=== PATIENT | female | born 1960 | race Caucasian/White ===

== ENCOUNTER 2016-08-15 15:32 | Emergency (ER) | payer MEDICARE, OTHER ==
[~2016-08-15 15:32] MED LIST: ADVAIR115P INH; APRES50 PO; ASAB PO; C25 PO; C5 PO; FLEX PO; FOLIC PO; IMDUR120 PO; KLOR-CON 1010 MEQ PO; L20 PO; LEVEMIR SC; LEVOTHYROXIN175 MCG PO; LIPITOR40 PO; LOFIB160 PO; NEUR600 PO; NORCO1 TA1 PO; NOVOPEN SC; PLAVIX PO; PRILO PO; PROAIR HFA INH; PROTONIX PO; RAN500 PO; REG5 PO; V5 PO; WELL75 PO
== END 2016-08-15 15:40 | disposition home or self-care (01) ==
LOC: ER 15:32
DX: E11.65 Type 2 diabetes mellitus with hyperglycemia (principal); Z88.0 Allergy status to penicillin; Z88.1 Allergy status to other antibiotic agents; Z79.4 Long term (current) use of insulin; Z79.82 Long term (current) use of aspirin; Z79.01 Long term (current) use of anticoagulants; Z79.899 Other long term (current) drug therapy
CPT/HCPCS: 82962; 99285; A9270-GY